=== PATIENT | male | born 1960 | race Caucasian/White ===

== ENCOUNTER 2016-07-03 13:28 | Emergency (ER) | payer MEDICARE, OTHER ==
[2016-07-03 13:54] VITALS: BP 124/84
--- NOTE | 2016-07-03 14:04 | ERNOTE ---
Chest Pain/Cardiac HPI Date of Service: 07/03/16 Chief Complaint: Chest Pain Time Seen by Provider: 07/03/16 13:49 Source: patient Exam Limitations: clinical condition Immunizations: IMMUNIZATION HX Immunizations Up to Date No History of Influenza Vaccine Yes Hx Pneumococcal Vaccination No Allergies/Adverse Reactions: Allergies No Known Allergies Allergy (Unverified 07/03/16 13:37) Home Medications: HOME MEDICATIONS Bupropion HCl 2 tab PO DAILY #4 tablet 07/03/16 [Last Taken Unknown] Esomeprazole Magnesium [Nexium] 40 mg PO DAILY #30 capsule. 07/03/16 [Last Taken Unknown] Ipratropium/Albuterol Sulfate [Combivent Respimat Inhal [place]] 1 puff IH QID #1 inhaler 07/03/16 [Last Taken Unknown] LORazepam [Ativan] 1 mg PO TID #6 tab 07/03/16 [Last Taken Unknown] Loratadine [Allergy Relief] 10 mg PO DAILY #30 tablet 07/03/16 [Last Taken Unknown] OXcarbazepine [Trileptal] 2 tab PO BID #4 tablet 07/03/16 [Last Taken Unknown] Simvastatin [Zocor] 40 mg PO HS #30 tab 07/03/16 [Last Taken Unknown] Narrative: The actual problem is that he has been out of his medication for at least a month. He has an appt. to see his psychiatric health worker, Tamara Gonzales, tomorrow at 1330. He wants his medicines refilled. Timing: getting worse Severity/Quality: moderate Location: other - not really a chest pain issue Chest Pain Radiation: other Activities at Onset: none Review of Systems - Review of Systems Constitutional: Present: malaise EYE: Present: no symptoms reported ENT: Present: no symptoms reported Respiratory: Present: no symptoms reported Cardiology: Present: no symptoms reported Gastrointestinal/Abdominal: Present: no symptoms reported Genitourinary: Present: no symptoms reported Musculoskeletal: Present: no symptoms reported Skin: Present: no symptoms reported Neurological: Present: anxiety, depressed, other - chronic vertigo Endocrine: Present: no symptoms reported Hematologic/Lymphatic: Present: no symptoms reported Psych: Present: anxiety, depressed, emotional problems All Other Systems: All systems neg except as marked - Patient's Past Medical History Patient History - Medical: Anxiety, Bipolar, Chronic Pain, Depression, GERD, Hypothyroidism, Liver Disease, Seizures Patient History - Cancer: No Hx of Cancer Patient History - Surgical Procedures: Back Surgery - Social History Living Situations: other Smoking Status: Current every day smoker Have you smoked in the past 12 months: Yes Do you dip or chew tobacco: No Physical Exam - Physical Exam General Appearance: Present: wd/wn, alert, no apparent distress, anxious Eye Exam: Normal inspection: bilateral, PERRL: bilateral, EOMI: bilateral Ears, Nose, Throat: Present: normal ENT inspection, hearing grossly normal Respiratory: Present: no respiratory distress, normal breath sounds Cardiovascular/Chest: Present: regular rate, rhythm, no murmur Gastrointestinal/Abdominal: Present: normal bowel sounds, nontender, nondistended, soft, no organomegaly Back Exam: Present: normal inspection, normal range of motion, no CVA tenderness , no vertebral tenderness Extremity Exam: Present: normal inspection, non-tender, no edema Neurological Exam: Present: alert, oriented, normal mood/affect Skin Exam: Present: normal color, warm/dry ED Progress - Vital Signs Patient's Vital Signs:: I have reviewed the patient's vital signs. Vital Signs: Vital Signs 07/03/16 13:28 Temperature 36.6 C Pulse Rate 89 Respiratory 14 Rate Blood Pressure 124/84 O2 Sat by Pulse 93 Oximetry - Progress/Reassessment Chief Complaint: Chest Pain Departure - Departure Clinical Impression: Bipolar 1 disorder, Noncompliance with medication regimen Condition: Fair Instructions: Bipolar Disorder Additional Instructions: Keep your appt with Tamara Gonzales tomorrow. Prescriptions: Bupropion HCl 2 tab PO DAILY #4 tablet Esomeprazole Magnesium [Nexium] 40 mg PO DAILY #30 capsule. Ipratropium/Albuterol Sulfate [Combivent Respimat Inhal [place]] 1 puff IH QID #1 inhaler LORazepam [Ativan] 1 mg PO TID #6 tab Loratadine [Allergy Relief] 10 mg PO DAILY #30 tablet OXcarbazepine [Trileptal] 2 tab PO BID #4 tablet Simvastatin [Zocor] 40 mg PO HS #30 tab
== END 2016-07-03 14:28 | disposition left against medical advice (07) ==
LOC: ER 13:28
DX: Z91.14 Patient's other noncompliance with medication regimen (principal); F31.9 Bipolar disorder, unspecified; F17.210 Nicotine dependence, cigarettes, uncomplicated